=== PATIENT | female | born 1990 | race Caucasian/White ===

== ENCOUNTER 2019-05-29 09:16 | Emergency (ER) | payer BC ==
--- NOTE | 2019-05-29 09:58 | UC ---
Complaint Female HPI - HPI Summary HPI Summary: 28 yo female presents with vaginal discharge. She tells me that for the last 3- 4 days she has noticed increased white milky/thick vaginal discharge with vaginal itching. She has had yeast infections in the past, but states they have always self resolved in a couple of days - this one has not. She was last sexually active a week ago, but denies any risk of STDs and does not want STD testing today. She has not had any vaginal bleeding, abdominal pain, fever, dysuria. LMP was about 10 days ago - History Of Current Complaint Chief Complaint: UCGU Stated Complaint: PERSONAL Time Seen by Provider: 05/29/19 09:51 Hx Obtained From: Patient Hx Last Menstrual Period: may 12- Onset/Duration: Sudden Onset Timing: Constant Severity Currently: None Pain Intensity: 0 - Allergies/Home Medications Allergies/Adverse Reactions: Allergies Allergy/AdvReac Type Severity Reaction Status Date / Time No Known Allergies Allergy Verified 05/29/19 09:33 PMH/Surg Hx/FS Hx/Imm Hx - Additional Past Medical History Additional PMH: None - Surgical History Surgical History: Yes Surgery Procedure, Year, and Place: appendectomy - Family History Known Family History: Positive: Non-Contributory - Social History Occupation: Employed Full-time Lives: With Family Alcohol Use: Weekly Substance Use Type: None Smoking Status (MU): Former Smoker Amount Used/How Often: rarely used to smoke cigarillos - in past Review of Systems All Other Systems Reviewed And Are Negative: No Constitutional: Positive: Negative Skin: Positive: Negative Respiratory: Positive: Negative Cardiovascular: Positive: Negative Gastrointestinal: Positive: Negative Genitourinary: Positive: Vaginal/Penile Itching, Vaginal/Penile Discharge Neurological: Positive: Negative Psychological: Positive: Negative Physical Exam - Summary Physical Exam Summary: GENERAL: NAD. WDWN. No pain distress. SKIN: No rashes, sores, lesions, or open wounds. NECK: Supple. Nontender. No lymphadenopathy. CHEST: CTAB. No r/r/w. No accessory muscle use. Breathing comfortably and in no distress. CV: RRR. Pulses intact. Cap refill <2seconds ABDOMEN: Soft. NTTP. No distention or guarding. No CVA tenderness. Bowel sounds present NEURO: Alert. PSYCH: Age appropriate behavior. Triage Information Reviewed: Yes Vital Signs: Initial Vital Signs Temp 98.9 F 10/18/19 09:29 Pulse 78 05/29/19 09:29 Resp 14 05/29/19 09:29 BP 139/73 05/29/19 09:29 Pulse Ox 100 05/29/19 09:29 Vital Signs Reviewed: Yes Pelvic Exam: Positive: External Exam Normal, Discharge - Copious thick/milky white, Other - Exam assisted by Rachel BRASWELL. Negative: Active Bleeding, Cervicitis , Lesions, Tender w/ Cervical Motion, Ulcers Complaint Female Dx - Course Course Of Treatment: Suspect yeast with possible BV. Will treat for yeast at this time and send for Affirm culture and treat for BV if necessary. She continues to decline STD testing today. - Differential Dx/Diagnosis Provider Diagnosis: Yeast infection Discharge ED - Sign-Out/Discharge Documenting (check all that apply): Patient Departure All imaging exams completed and their final reports reviewed: No Studies - Discharge Plan Condition: Stable Disposition: HOME Prescriptions: Fluconazole 150 MG TAB* [Diflucan 150 MG TAB*] 150 mg PO DAILY #2 tablet Patient Education Materials: Yeast Infection (ED) Referrals: No Primary Care Phys,NOPCP [Primary Care Provider] - Additional Instructions: If you develop a fever, shortness of breath, chest pain, new or worsening symptoms - please call your PCP or go to the ED immediately. - Billing Disposition and Condition Condition: STABLE Disposition: Home
== END 2019-05-29 10:20 | disposition home or self-care (01) ==
LOC: UCEAST 09:16
DX: B37.3 Candidiasis of vulva and vagina (principal); Z87.891 Personal history of nicotine dependence
CPT/HCPCS: 87480; 87510; 87660; 99202; G0463